=== PATIENT | male | born 1975 | race Caucasian/White ===

== ENCOUNTER 2021-01-07 00:48 | Inpatient (IN) | payer OTHER ==
[2021-01-07] VITALS (7 sets, daily range): BP systolic 103–151; BP diastolic 56–84
[~2021-01-07] VITALS: Ht 182.9 cm; Wt 94.6 kg
[2021-01-07 01:13] LABS: BASOPHILS 0.5 % (0.0-2.0); EOSINOPHILS 2.8 % (0.0-3.0); HEMATOCRIT 42.7 % (42.0-52.0); HEMOGLOBIN 14.4 gm/dL (14.0-18.0); LYMPHOCYTES 30.7 % (24.0-44.0); MCH 29.5 pg (26.0-34.0); MCHC 33.7 g/dL (28.0-37.0); MCV 87.6 fL (80.0-100.0); MONOCYTES 6.6 % (1.0-8.0); PLATELET COUNT 249 thou/uL (150-400); POLYS 59.4 % (36.0-66.0); RBC 4.87 mil/uL (4.50-6.00); RDW 12.8 % (10.5-14.5); WBC 13.4 thou/uL (4.0-11.0)
[2021-01-07 01:17] LABS: ANION GAP 6 mmol/L (7-16); BUN 13 mg/dL (7-18); CALCIUM 8.8 mg/dL (8.5-10.1); CHLORIDE 106 mmol/L (98-107); CO2 34 mmol/L (21-32); CREATININE 0.9 mg/dL (0.7-1.3); GLUCOSE 123 mg/dL (74-106); POTASSIUM 3.6 mmol/L (3.5-5.1); SODIUM 146 mmol/L (136-145)
[2021-01-07] MEDS ORDERED: HUMALOG100 UNIT/1 SUBQ (01:18)
[2021-01-07] MEDS ORDERED: LIPITOR80 MG PO (01:18)
[2021-01-07] MEDS ORDERED: LANTUS SUBQ (01:18)
[2021-01-07] MEDS ORDERED: ASA81BEC PO (01:19)
[2021-01-07] MEDS ORDERED: CARVEDILOL12.5 MG PO ×2 (01:19)
[2021-01-07 01:27] LABS: ALBUMIN 4.3 g/dL (3.4-5.0); SGOT 24 U/L (15-37); SGPT 53 U/L (30-65); TOTAL BILIRUBIN 0.4 mg/dL (0.2-1.0); TOTAL PROTEIN 7.9 g/dL (6.4-8.2); TROPONIN-I <0.06 ng/mL (<0.06)
[2021-01-07] MEDS ORDERED: TYLENOL EXTRA500 MG PO (03:41)
[2021-01-07 07:10] LABS: APTT 26.5 Seconds (24.5-32.8); INR 1.04; PROTIME 11.3 Seconds (10.5-12.1)
--- NOTE | 2021-01-07 07:40 | NUR ---
Arrived from ER around 0325. Mild chest pain 4/10 described as intermittent aching and worst with exertion/activity. Left arm numbness is intermittent which he stated is nothing new. Nitropaste applied to left chest area as ordered. Headache is better after tylenol given. Tolerating room air well with O2 sat in the upper 90's. Denies being short of breath at this time but had it when he first arrived. Baseline coags drawn and sent to lab. New IV on left FA placed. Heparin bolus given per cardiology protocol and heparin gtt. started. Next APTT at 1200 today. Up ad brian in room with steady gait. Refused SCD's.
[2021-01-07 09:12] LABS: CHOLESTEROL 86 mg/dL (<200); HDL CHOLESTEROL 30 mg/dL (>40); LDL CHOLESTEROL 36 mg/dL (<100); TC:HDL 2.9 Ratio (Not establshd); TRIGLYCERIDE 103 mg/dL (<150); VLDL 21 mg/dL (<40)
--- NOTE | 2021-01-07 09:22 | EKG ---
[place] [address] [facility] [address] [place] [address] ELECTROCARDIOGRAM REPORT Name: LOIDA HOWARD Room #: 207-P ADM IN M.R.#: [id number] Admission: 01/07/21 Attend Phys: Mariam Harding MD Discharge: Date of : 79 Report #: [id number] [facility] ED Test Date: 2021-01-07 Test Time: 00:50:31 Pat Name: LOIDA HOWARD Department: Room: 207 Gender: M [employer] Worker: JORGE : 1975 Requested By: Renae Moreno Order Number: [id number] : Juan Garcia Measurements Intervals [place] Rate: 83 P: 81 DC: 145 QRS: 69 QRSD: 102 T: -10 QT: 387 QTc: 455 Interpretive Statements Sinus rhythm Left atrial enlargement LVH with secondary repolarization abnormality No previous ECG available for comparison Electronically Signed On 01-07-2021 9:22:49 CDT by Juan Garcia [email or web address] <ELECTRONICALLY SIGNED> By: Juan Garcia MD, [facility] 01/07/21 0922 0050 0050 Juan Garcia MD, FACC /EPI
--- NOTE | 2021-01-07 10:35 | NUR ---
Assumd pt care this am, seen by cardio early in the am, vs stable. Troponin 0.12 at 08:40 am, MD informed. Pt is idenpendent of all ADL's. Scheduled for NM cardiac stress test tomorrow. POC followed with no signs or verbalizations of distress noted.
[2021-01-08] VITALS (15 sets, daily range): BP systolic 93–134; BP diastolic 60–86
[2021-01-08 01:05] LABS: GLYCOHEMOGLOBIN (HGB A1C) 7.7 % (4.8-5.6)
[2021-01-08 03:23] LABS: HEMATOCRIT 41.7 % (42.0-52.0); HEMOGLOBIN 14.2 gm/dL (14.0-18.0); MCH 29.9 pg (26.0-34.0); MCHC 33.9 g/dL (28.0-37.0); MCV 88.2 fL (80.0-100.0); RBC 4.73 mil/uL (4.50-6.00); RDW 12.5 % (10.5-14.5)
[2021-01-08 03:33] LABS: CALCIUM 8.7 mg/dL (8.5-10.1); CREATININE 0.8 mg/dL (0.7-1.3); POTASSIUM 3.2 mmol/L (3.5-5.1)
--- NOTE | 2021-01-08 07:50 | NUR ---
ASSUMED CARE OF PT AT 1900, HEPARIN DRIP CONTINUES AT THIS TIME. ASSESSMENT COMPLETED NOTED. PT C/O OF CHEST PAIN 01/16, NITRO PO GIVEN, WITH RESOLUTION OF PAIN. 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 WILL CONTINUE TO WORK TOWARDS PT'S POC.
--- NOTE | 2021-01-08 09:31 | 2DMMODE ---
[facility] [address]se [address] [place] [address] 2 D/M-MODE ECHOCARDIOGRAM Name: LOIDA HOWARD ROSARIO Room #: 207-P ADM IN M.R.#: [id number] Admission: 01/07/21 Attend Phys: Mariam Harding MD Discharge: Date of : 79 Report #: [id number] THIS REPORT FOR: cc: [facility] - Clinic physician unknown [facility] - Clinic physician unknown Juan Garcia MD [facility] ~ APPROVED REPORT Study performed: 01/08/2021 08:38:29 EXAM: Comprehensive 2D, Doppler, and color-flow Echocardiogram Patient Location: Bedside Room #: 207 Status: routine BSA: 2.17 HR: 77 bpm BP: 118/79 mmHg Rhythm: NSR Other Information Study Quality: Adequate Indications Chest pain. Hx: CABG, HTN, HLP, DM. 2D Dimensions RVDd: 39.30 mm IVSd: 9.33 (7-11mm) LVOT Diam: 22.43 (18-24mm) LVDd: 51.43 mm PWd: 10.73 (7-11mm) Ascending Ao: 35.01 (22-36mm) LVDs: 41.33 (25-40mm) Left Atrium: 48.08 (27-40mm) Aortic Root: 36.31 mm Volumes Left Atrial Volume (Systole) Single Plane 4CH: 87.94 mL Single Plane 2CH: 56.37 mL LA ESV Index: 38.00 mL/m2 Aortic Valve AoV Peak Linus.: 1.33 m/s AO Peak Gr.: 7.05 mmHg LVOT Max P.63 mmHg LVOT Max V: 1.08 m/s [facility] [address] [place] [address] 2 D/M-MODE ECHOCARDIOGRAM Name: ANITALOIDA BRENT Room #: 207-P [facility] IN ..#: [id number] Admission: 01/07/21 Attend Phys: Mariam Harding, Discharge: Date of : 79 Report #: [id number] APOLLO Vmax: 3.20 cm2 Mitral Valve E/A Ratio: 2.1 MV Decel. Time: 153.23 ms MV E Max Linus.: 0.90 m/s MV A Linus.: 0.43 m/s MV PHT: 44.44 ms IVRT: 87.66 ms Pulmonary Valve PV Peak Linus.: 0.79 m/s PV Peak Gr.: 2.51 mmHg Pulmonary Vein P Vein S: 0.66 m/s P Vein D: 0.80 m/s P Vein S/D Ratio: 0.82 Tricuspid Valve TR Peak Ilnus.: 2.82 m/s RAP Estimate: 5.00 mmHg TR Peak Gr.: 32.00 mmHg PA Pressure: 37.00 mmHg Left Ventricle The left ventricle is normal size. Regional wall motion abnormalities are noted. There is normal left ventricular wall thickness. Left ventricular systolic function is low normal. LVEF is 50%. Right Ventricle The right ventricle is normal size. The right ventricular systolic function is normal. Atria Left atrium is mildly dilated. The right atrium size is normal. Aortic Valve The aortic valve is normal in structure. Trace aortic regurgitation. There is no aortic valvular stenosis. Mitral Valve The mitral valve is normal in structure. Mild to moderate mitral regurgitation. No evidence of mitral valve stenosis. Tricuspid Valve The tricuspid valve is normal in structure. Mild to moderate [facility] [address] [place] [address] 2 D/M-MODE ECHOCARDIOGRAM Name: LOIDA HOWARD Room #: 207-P [facility] IN M.R.#: [id number] Admission: 01/07/21 Attend Phys: Mariam Harding, Discharge: Date of : 79 Report #: [id number] tricuspid regurgitation. Estimated PAP is 35-40mmHg. Pulmonic Valve The pulmonary valve is normal in structure. Trace pulmonic regurgitation. Great Vessels The aortic root is normal in size. The ascending aorta is normal in size. IVC is normal in size and collapses >50% with inspiration. Pericardium There is no pericardial effusion. <Conclusion> Normal left ventricle size/wall thickness Ejection fraction 50% with mild anterior wall hypokineses Normal right ventricular size/function Normal atrial size Color-flow Doppler study was performed of the aortic/mitral/tricuspid/pulmonary valve Normal aortic valve structure and function Mild to moderate posteriorly directed mitral valve insufficiency Mild tricuspid valve insufficiency Pulmonary systolic pressure estimated 35 mmHg No pericardial effusion Normal aortic root size. <ELECTRONICALLY SIGNED> By: Juan Garcia MD, FACC 01/08/21930 0 0 Juan Garcia MD, FACC /INF
--- NOTE | 2021-01-08 09:50 | EKG ---
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 : 1975 Requested By: Mariam Harding Order Number: [id number] MD: Juan Garcia Measurements Intervals [place] Rate: 80 P: 77 DE: 148 QRS: 63 QRSD: 103 T: 62 QT: 390 QTc: 450 Interpretive Statements Sinus rhythm Left atrial enlargement Left ventricular hypertrophy Compared to ECG 01/07/2021 00:50:31 Early repolarization no longer present Electronically Signed On 01-08-2021 9:49:46 CDT by Juan Garcia [email or web address] <ELECTRONICALLY SIGNED> By: Juan Garcia MD, [facility] 01/08/21 0949 7 7 Juan Garcia MD, FAC /EPI
--- NOTE | 2021-01-08 20:16 | NUR ---
PT IS AXOX4, PLEASANT; VSS, AFEBRILE, SR ON THE MONITOR. PT C/O CHEST PAIN IN LEFT SAID, RADIATING TO LEFT ARM. CARDIOLOGY CONSULTED. ECHO COMPLETED, NUC STRESS CANCELLED. CONSENT OBTAINED AND CARDIAC CATH COMPLETED THIS PM. POC IS TO CONTINUE TO MONITOR CATH SITE, R GROIN, C/D/I, NO HEMATOMA. POSS D/C IN AM. LOW FALL PRECAUTIONS IN PLACE. NO CONCERNS AT THIS TIME.
[2021-01-09] VITALS (7 sets, daily range): BP systolic 101–121; BP diastolic 60–71
[2021-01-09 04:44] LABS: HEMATOCRIT 40.6 % (42.0-52.0); HEMOGLOBIN 13.6 gm/dL (14.0-18.0); MCH 29.7 pg (26.0-34.0); MCHC 33.6 g/dL (28.0-37.0); MCV 88.4 fL (80.0-100.0); RBC 4.59 mil/uL (4.50-6.00); RDW 13.1 % (10.5-14.5)
[2021-01-09 05:03] LABS: ALBUMIN 3.8 g/dL (3.4-5.0); CALCIUM 8.4 mg/dL (8.5-10.1); CREATININE 0.8 mg/dL (0.7-1.3); POTASSIUM 3.6 mmol/L (3.5-5.1); TOTAL BILIRUBIN 0.7 mg/dL (0.2-1.0); TOTAL PROTEIN 7.2 g/dL (6.4-8.2)
[2021-01-09 05:06] LABS: TROPONIN-I 0.78 ng/mL (<0.06)
--- NOTE | 2021-01-09 08:03 | NUR ---
ASSUMED CARE OF PT AT 1900, PT IS ON 1L NC FOR SOA AFTER PROCEEDURE. ASSESSMENT COMPLETED NOTED. PT C/O BILAT SHOULDER PAIN, MEDICATION GIVEN WITH RESOLUTION OF PAIN. MYNX CLOSURE CLEAN DRY AND INTACT. WILL CONTINUE TO WORK TOWARDS PT'S POC.
[2021-01-09] MEDS ORDERED: EFFIENT10 MG PO (09:51)
[2021-01-09] MEDS ORDERED: COREG6.25 MG PO (09:51)
[2021-01-09] MEDS ORDERED: IMDUR 30 MG TAB30 M1 PO (09:51)
--- NOTE | 2021-01-09 13:19 | NUR ---
PT IS AXOX4, PLEASANT; VSS, AFEBRILE, SR ON MONITOR. C/O HEADACHE, RX TYLENOL GIVEN. CARDIOLOGY CONSULTED, DR BRAUN CONSULTED. PT TO D/C HOME. DISCHARGE EDUCATION CONDUCTED. PT AND PT AT THE BEDSIDE. BOTH COMMUNICATED UNDERSTANDING OF DISCHARGE INSTRUCTION. PT D/C HOME WITH VIA PERSONAL VEHICLE. NO CONCERNS AT THIS TIME.
--- NOTE | 2021-01-09 16:55 | CATHLAB ---
[facility] [place] [address] INVASIVE PROCEDURE REPORT Name: LOIDA HOWARD Room #: 207-P DIS IN M.R.#: [id number] Admission: 01/07/21 Attend Phys: Mariam Harding MD Discharge: 01/09/21 Date of : 79 Report #: [id number] THIS REPORT FOR: cc: [facility] - Clinic physician unknown [facility] - Clinic physician unknown Ha Gutierres MD [facility] ~ APPROVED REPORT Study performed: 01/08/2021 12:59:55 Patient Details Patient Status: In-Patient Room #: 207 The patient is a 45 year-old male Event Personnel Ha Gutierres Family Protection Specialist, Tomy Hickey RN RN, Doris Mckee RTR, CORK COMPOUNDER Monitor, Hillary Reed RTR Scrub Procedures Performed Art Access - R femoral artery* Left Heart Cath Coronaries, Bypass Grafts 4432360 LHCCORCABG Aortogram Abdominal Peripheral Angio 031592 30072 Initial Mod Sed Same Phys/QHP Gr5y 573109 EWA Place w/wo Plasty Single LAD 291634 71704 Mod Sed Same Phys/QHP Ea 531342 Hemostasis w/ Mynx Procedure Narrative The Right Groin^ was infiltrated with 1% Lidocaine subcutaneous anesthesia. A PINNACLE 6FR Sheath #[id number] sheath was inserted into the RFA^. Coronary angiography was performed using coronary diagnostic catheters. The right coronary system was accessed and visualized with a JR4 catheter. The left coronary system was accessed and visualized with a JL4 catheter. The left ventricle was accessed and visualized with a PIGTAIL catheter. Left ventriculogram was performed in 30 degree projection. An aortogram of the abdominal aorta was performed. Closure device was deployed with a Fr MYNXGRIP 6/7F #[id number]. The patient tolerated the procedure well and there were no complications associated with the procedure. There was no hematoma. Intraoperative Conscious Sedation Sedation start time: 14:02 Case end Time: 15:13 Fentanyl 125 mcg Versed 2.0 mg [address] [place] [address] INVASIVE PROCEDURE REPORT Name: LOIDA HOWRAD [place] Room #: 207-P [facility] IN [facility]#: [id number] Admission: 01/07/21 Attend Phys: Mariam Harding, Discharge: 01/09/21 Date of : 79 Report #: [id number] Fluoro Time: 10.90 minutes Dose: DAP 03884.80 cGycm2 3058 mGy Contrast Type and Amount: Omnipaque 220 ml Hemodynamics The aortic pressure is 114/70 mmHg with a mean of 91 mmHg. The left ventricular pressure is 112/7 mmHg with a mean of mmHg. The left ventricular end diastolic pressure is 24 mmHg. PCI Technique Lesion Percutaneous coronary intervention was performed on the proximal left anterior descending artery segment. A LAUNCHER 6FR EBU 3.5 #[id number] Guide Catheter was used to engage the ostium. A Luge Wire .014 x 182CM #[id number] Interventional Guidewire was used to cross the lesion. BALLOON DILATION A Balloon catheter Sprinter OTW 3.0 x 12 #[id number] was inserted and inflated up to 8.00atm for 17seconds. Additional Inflation: 12.00atm for 30seconds. Additional Inflation: 14.00atm for 25seconds. STENT DEPLOYMENT A drug-eluting stent RESOLUTE SRAVANI OTW 3.5 X 8 #[id number] was inserted and inflated up to 14.00atm for 22seconds. Additional Inflation: 18.00atm for 21seconds. POST STENT DEPLOYMENT BALLOON DILATION A Balloon catheter TREK NC RX 4.0 X 8 #[id number] was inserted and inflated up to 12.00atm for 24seconds. Additional Inflation: 14atm for 22seconds. Conclusion #1 Successful PTCA stent of a subtotal ostial LAD off of the left main placement of a 3.5 x 8 [place] resolute stent postdilated 4.0 mm MAUREEN grade III flow filling a large diagonal proximal LAD and septal. The the mid LAD occlusion is filled via a BLUM graft there was no retrograde filling via the BLUM graft. #2 BLUM to LAD fills the mid to distal LAD around the apex no retrograde filling thus compromise of the diagonal septal system as stated above without intervention to the ostial LAD lesion. #3 circumflex OM dominant large coming off of left main free of disease #5 left main is large and free of disease giving rise to the LAD which was subtotaled prior to intervention and the circumflex. #6 small relatively nondominant RCA mildly diseased [facility] [address] [place] [address] INVASIVE PROCEDURE REPORT Name: LOIDA HOWARD Room #: 207-P DIS IN Darrel.Mitchel.#: [id number] Admission: 01/07/21 Attend Phys: Mariam Harding, Discharge: 01/09/21 Date of : 79 Report #: [id number] #7 hyperdynamic LV function EF 65%. #8 abdominal aorta is intact without evidence of aneurysm no occlusive disease. Recommendations and plan: Continue aggressive risk factor modification. Dual antiplatelet therapy has been initiated. Patient transfer CCU to follow post coronary stent protocol. <ELECTRONICALLY SIGNED> By: Ha Gutierres MD, [facility] 01/09/215 54 54 Ha Gutierres MD, FAC /INF
== END 2021-01-09 14:05 | disposition home or self-care (01) | DRG 246 ==
LOC: ER 00:48 → 2N 02:17 → EROBS 02:17 → 2N 04:38
PROVIDERS: Nurse Practitioner Adult Health; Nurse Practitioner Family; Student in an Organized Health Care Education/Training Program; ADMIT Internal Medicine; ATTEND Internal Medicine
DX: I21.4 Non-ST elevation (NSTEMI) myocardial infarction (principal); I50.33 Acute on chronic diastolic (congestive) heart failure; I25.110 Atherosclerotic heart disease of native coronary artery with unstable angina pectoris; I10 Essential (primary) hypertension; E78.5 Hyperlipidemia, unspecified; E11.9 Type 2 diabetes mellitus without complications; K74.60 Unspecified cirrhosis of liver; E78.00 Pure hypercholesterolemia, unspecified; E87.6 Hypokalemia; Z20.822 Contact with and (suspected) exposure to COVID-19; Z79.82 Long term (current) use of aspirin; Z79.899 Other long term (current) drug therapy; Z88.0 Allergy status to penicillin; Z95.1 Presence of aortocoronary bypass graft; Z79.4 Long term (current) use of insulin; Z90.49 Acquired absence of other specified parts of digestive tract
CPT/HCPCS: 10081